=== PATIENT | female | born 1985 | race Caucasian/White ===

== ENCOUNTER 2018-12-20 13:31 | Emergency (ER) | payer OTHER ==
[2018-12-20] MEDS: LIDOCAINE 4% CR TOP (15:49)
[2018-12-20] MEDS: LIDOCAINE 1% (MDV) 20 ML INJ SC (15:49)
[2018-12-20] MEDS ORDERED: BACITRACIN 0.9 GM OINT (16:52)
== END 2018-12-20 16:57 | disposition home or self-care (01) ==
LOC: FTE 13:31
DX: L60.0 Ingrowing nail (principal)
CPT/HCPCS: 11750; 99283-25